=== PATIENT | female | born 1950 | race Two or more races ===

== ENCOUNTER 2023-05-05 00:04 | Emergency (ER) | payer OTHER ==
[~2023-05-05] VITALS: Ht 154.9 cm; Wt 59.0 kg
[2023-05-05] MEDS ORDERED: COZAAR25 MG (00:39)
[2023-05-05] MEDS ORDERED: TOPROL XL25 M1 (00:39)
[2023-05-05] MEDS ORDERED: AMLODIPINE-OLM1 EAC2 (00:43)
[2023-05-05] MEDS ORDERED: FLOVENT HFA12 GM IH (08:28)
[2023-05-05] MEDS ORDERED: PROVENTIL HFA6.7 GM IH (08:28)
[2023-05-05] MEDS ORDERED: ALBUTEROL2.5 MG/3 M IH (08:28)
[2023-05-05] MEDS ORDERED: ZYNCOF 20-400120 ML PO (08:29)
== END 2023-05-05 08:46 ==
LOC: ER 00:04
PROVIDERS: General Practice
DX: R06.02 Shortness of breath (principal); I10 Essential (primary) hypertension; Z87.891 Personal history of nicotine dependence; Z20.822 Contact with and (suspected) exposure to COVID-19
CPT/HCPCS: 36415; 71045; 82803; 93005; 93041; 94640; 96365; 99284; J2930

== ENCOUNTER 2024-08-01 13:00 | Inpatient (IN) | payer OTHER ==
[~2024-08-01] VITALS: Ht 154.9 cm; Wt 44.5 kg
[~2024-08-01 13:00] MED LIST: ALBUTEROL2.5 MG/3 M IH; AMLODIPINE-OLM1 EAC2; COZAAR25 MG; FLOVENT HFA12 GM IH; PROVENTIL HFA6.7 GM IH; TOPROL XL25 M1; ZYNCOF 20-400120 ML PO
[2024-08-01] MEDS ORDERED: TOPROL XL50 M1 PO (13:44)
[2024-08-01] MEDS ORDERED: AMILORIDE HCL5 MG PO (13:45)
[2024-08-01] MEDS ORDERED: COZAAR100 MG PO (13:45)
--- NOTE | 2024-08-01 13:46 | NUR ---
PTE LLEGA EN ANBULANCIA POR HYPOTENCION Y SUPUESTO ANAL BLEDING TIPO MELENA, SE SE LE BRENNA S/V Y SE UBICA EN GIANLUCA.3
[2024-08-01] MEDS ORDERED: 0.9 % SODIUM CHLORIDE 1,000 ML IV STA (14:05)
[2024-08-01] MEDS ORDERED: FAMOtidine 10 MG/ML (4ML VIAL) IV STA (14:05)
[2024-08-01] MEDS ORDERED: ONDANSETRON HCL 2 MG/ML VIAL IV ONE (14:15)
[2024-08-01 14:45] LABS: HEMATOCRIT 45.4 % (36.0-45.00); HEMOGLOBIN 15.6 g/dL (12.0-15.00); MEAN CELL VOLUME 95.3 fL (80.00-100.00); MEAN CORPUSCULAR HEMOGLOBIN 32.7 pg (27.00-32.0); MEAN CORPUSCULAR HGB CONC 34.3 g/dl (32.0-36.0); PLATELET COUNT 296 K/uL (150-450); RED BLOOD COUNT 4.76 M/uL (4.00-6.00); RED CELL DISTRIBUTION WIDTH 13.7 % (11.5-14.5)
[2024-08-01 15:12] LABS: ALBUMIN 3.3 gm/dL (3.4-5.0); BILIRUBIN TOTAL 0.61 mg/dL (0.3-1.2); BILIRUBIN,CONJUGATED 0.22 mg/dL (0.0-0.2); BILIRUBIN,UNCONJUGATED 0.39 mg/dL (0.0-0.6); CALCIUM 8.3 mg/dL (8.5-10.1); CREATININE SERUM 0.8 mg/dL (0.55-1.02); GFR 70.51; TOTAL PROTEIN 6.6 gm/dL (6.4-8.2)
[2024-08-01 15:15] LABS: POTASSIUM 2.93 mEq/L (3.5-5.1)
[2024-08-01] MEDS ORDERED: POTASSIUM BICARBONATE/CIT AC 25 MEQ TABLET.EFF PO ONE (19:30)
[2024-08-01] MEDS ORDERED: ASPIRIN 81 MG TAB.CHEW PO SCH (21:41)
[2024-08-01] MEDS ORDERED: PANTOPRAZOLE SODIUM 40 MG/VIAL VIAL IV SCH (21:41)
[2024-08-01] MEDS ORDERED: ATORVASTATIN CALCIUM 40 MG TABLET PO SCH (21:41)
[2024-08-01] MEDS ORDERED: POTASSIUM CHLORIDE IN WATER 100 ML IV SCH (21:43)
[2024-08-01] MEDS ORDERED: 0.9 % SODIUM CHLORIDE 1,000 ML IV SCH (21:45)
[2024-08-01] MEDS ORDERED: ACETAMINOPHEN 500 MG GEL..CAP PO PRN (21:45)
[2024-08-01] MEDS ORDERED: CEFTRIAXONE SODIUM 2,000 MG in 0.9 % SODIUM CHLORIDE 100 ML IV SCH (21:45)
[2024-08-01 23:47] LABS: URINE APPEARANCE Clear; URINE BILIRRUBIN Negative (NEGATIVE); URINE BLOOD Moderate; URINE COLOR Yellow; URINE GLUCOSE Negative (NEGATIVE); URINE KETONE Trace (NEGATIVE); URINE LEUKOCYTE Negative; URINE NITRATE Negative; URINE PROTEIN 30 (NEGATIVE); URINE UROBILINOGEN 0.2 E.U./dl
[2024-08-01 23:50] LABS: URINE BACTERIA 604.5 uL (0.0-1933); URINE EPITHELIAL CELLS 41.1 uL (0.0-38.8); URINE RBC 14.5 uL (0.0-20.8); URINE WBC 32.7 uL (0.0-23.2)
[2024-08-02 00:50] LABS: INR 0.97; PROTHROMBIN TIME 10.6 SECONDS (9.0-11.5)
[2024-08-02 01:00] LABS: D DIMER 3.78 MG/L; PARTIAL THROMBOPLASTIN TIME 25.1 SECONDS (22.0-34.0)
[2024-08-02 05:00] VITALS: BP 90/52; O2SAT 94
[2024-08-02 07:45] LABS: CHOL HDL RATIO 1.5 (0-5.0); TSH 0.502 uIU/mL (0.358-3.74)
[2024-08-02] MEDS ORDERED: LOSARTAN POTASSIUM 25 MG TABLET PO SCH (09:00)
[2024-08-02] MEDS ORDERED: METOPROLOL SUCCINATE 25 MG TAB.SR.24H PO SCH (09:00)
[2024-08-02 09:39] VITALS: BP 75/43; O2SAT 94
[2024-08-02] MEDS ORDERED: CLINDAMYCIN PHOSPHATE 600 MG in DEXTROSE 5 % IN WATER 50 ML IV SCH (17:00)
[2024-08-02] MEDS ORDERED: LACTOBACILLUS ACIDOPHILUS 1 CAP CAP PO SCH (17:00)
[2024-08-02 17:44] VITALS: BP 126/63
[2024-08-03 02:52] VITALS: BP 107/70; O2SAT 97
[2024-08-03 10:54] LABS: ob NEGATIVE (NEGATIVE)
[2024-08-03 19:41] VITALS: BP 114/52; O2SAT 95
[2024-08-04] VITALS: BP 132/59; O2SAT 100
[2024-08-04 06:45] LABS: HEMATOCRIT 38.8 % (36.0-45.00); HEMOGLOBIN 13.6 g/dL (12.0-15.00); MEAN CELL VOLUME 97.1 fL (80.00-100.00); MEAN CORPUSCULAR HEMOGLOBIN 33.9 pg (27.00-32.0); MEAN CORPUSCULAR HGB CONC 34.9 g/dl (32.0-36.0); PLATELET COUNT 314 K/uL (150-450); RED CELL DISTRIBUTION WIDTH 13.5 % (11.5-14.5)
[2024-08-04 07:25] LABS: ALBUMIN 3.4 gm/dL (3.4-5.0); BILIRUBIN TOTAL 0.66 mg/dL (0.3-1.2); CALCIUM 8.6 mg/dL (8.5-10.1); CREATININE SERUM 0.42 mg/dL (0.55-1.02); GFR 148.31; GLOBULINA 2.6 G/DL (2.4-3.5); POTASSIUM 3.08 mEq/L (3.5-5.1)
[2024-08-04 07:30] LABS: C-REACTIVE PROTEIN 2.92 MG/DL (0.00-0.29)
[2024-08-04 07:40] LABS: ERYTHROCYTE SEDIMENTATION RATE 12 mm/hr
[2024-08-04 08:30] VITALS: BP 138/65; O2SAT 98
[2024-08-04 17:13] LABS: PH,URINE 6.5 (5.0-8.0); URINE APPEARANCE Clear; URINE BILIRRUBIN Negative (NEGATIVE); URINE BLOOD Negative; URINE COLOR Yellow; URINE KETONE Negative (NEGATIVE); URINE LEUKOCYTE Negative; URINE NITRATE Negative; URINE PROTEIN Negative (NEGATIVE); URINE UROBILINOGEN 0.2 E.U./dl
[2024-08-04 17:17] LABS: URINE BACTERIA 8.8 uL (0.0-1933); URINE EPITHELIAL CELLS 47.9 uL (0.0-38.8); URINE RBC 106.5 uL (0.0-20.8); URINE WBC 7.1 uL (0.0-23.2)
[2024-08-04] MEDS ORDERED: POTASSIUM CHLORIDE IN WATER 100 ML IV ONE (17:30)
[2024-08-04 18:29] VITALS: BP 148/67; O2SAT 97
[2024-08-04 18:53] LABS: URINE GLUCOSE 100 MG/DL (NEGATIVE); URINE MUCUS SCANT
[2024-08-04] MEDS ORDERED: FAMOtidine 10 MG/ML (4ML VIAL) IV SCH (21:00)
[2024-08-05 02:12] VITALS: BP 149/79
[2024-08-05 07:53] LABS: CALCIUM 8.4 mg/dL (8.5-10.1); CREATININE SERUM 0.35 mg/dL (0.55-1.02); GFR 183.04
[2024-08-05] MEDS ORDERED: PANTOPRAZOLE SODIUM 40 MG TABLET.DR PO SCH (09:00)
[2024-08-05 09:06] LABS: POTASSIUM 2.83 mEq/L (3.5-5.1)
[2024-08-05 14:13] LABS: FECAL LEUKOCYTES NEGATIVE (NEGATIVE)
[2024-08-05] MEDS ORDERED: VANCOMYCIN HCL 125 MG/7.5 ML BLIST.PACK PO SCH (17:00)
[2024-08-05 17:25] VITALS: BP 144/68; O2SAT 95
[2024-08-05] MEDS ORDERED: POTASSIUM CHLORIDE IN WATER 100 ML IV ONE (18:15)
[2024-08-05] MEDS ORDERED: FAMOTIDINE/PF 20 MG/2 ML VIAL IV PUSH SCH (21:00)
[2024-08-06 00:56] VITALS: BP 133/73; O2SAT 95
[2024-08-06 10:33] VITALS: BP 138/54; O2SAT 98
[2024-08-06 17:54] VITALS: BP 133/73; O2SAT 100
[2024-08-07 01:15] VITALS: BP 165/86; O2SAT 98
[2024-08-07 06:52] LABS: HEMATOCRIT 34.3 % (36.0-45.00); HEMOGLOBIN 12.2 g/dL (12.0-15.00); MEAN CELL VOLUME 95.5 fL (80.00-100.00); MEAN CORPUSCULAR HEMOGLOBIN 34.1 pg (27.00-32.0); MEAN CORPUSCULAR HGB CONC 35.7 g/dl (32.0-36.0); PLATELET COUNT 403 K/uL (150-450); RED BLOOD COUNT 3.59 M/uL (4.00-6.00); RED CELL DISTRIBUTION WIDTH 13.4 % (11.5-14.5)
[2024-08-07 07:28] LABS: ALBUMIN 3.2 gm/dL (3.4-5.0); BILIRUBIN TOTAL 0.49 mg/dL (0.3-1.2); CALCIUM 8.3 mg/dL (8.5-10.1); CREATININE SERUM 0.44 mg/dL (0.55-1.02); GFR 140.56; GLOBULINA 2.3 G/DL (2.4-3.5); TOTAL PROTEIN 5.5 gm/dL (6.4-8.2)
[2024-08-07 09:09] VITALS: BP 158/79; O2SAT 99
[2024-08-07 09:12] LABS: C-REACTIVE PROTEIN 0.74 MG/DL (0.00-0.29)
[2024-08-07 09:14] LABS: POTASSIUM 2.82 mEq/L (3.5-5.1)
[2024-08-07] MEDS ORDERED: POTASSIUM CHLORIDE IN WATER 100 ML IV NR (16:00)
[2024-08-07] MEDS ORDERED: POTASSIUM CHLORIDE/D5-0.45NACL 1,000 ML IV ONE (16:00)
[2024-08-07 19:01] VITALS: BP 121/62
[2024-08-08 01:49] VITALS: BP 157/76; O2SAT 96
[2024-08-08 06:43] LABS: BILIRUBIN TOTAL 0.42 mg/dL (0.3-1.2); CALCIUM 8.5 mg/dL (8.5-10.1); CREATININE SERUM 0.38 mg/dL (0.55-1.02); GFR 166.47
[2024-08-08 07:41] LABS: POTASSIUM 2.99 mEq/L (3.5-5.1)
[2024-08-08] MEDS ORDERED: POTASSIUM CHLORIDE IN WATER 40 MEQ/100 ML PIGGYBAG IV ONE (08:00)
[2024-08-08] MEDS ORDERED: POTASSIUM CHLORIDE IN WATER 40 MEQ/100 ML PIGGYBAG IV NR (09:00)
[2024-08-08 09:12] VITALS: BP 143/77; O2SAT 98
[2024-08-08] MEDS ORDERED: POTASSIUM CHLORIDE IN 0.9%NACL 1,000 ML IV SCH (16:57)
[2024-08-08 18:24] VITALS: BP 186/95
[2024-08-09 03:04] VITALS: BP 137/84; O2SAT 93
[2024-08-09 09:02] VITALS: BP 140/80; O2SAT 96
[2024-08-09 18:25] VITALS: BP 160/85; O2SAT 97
[2024-08-09] MEDS ORDERED: POTASSIUM CHLORIDE IN 0.9%NACL 1,000 ML IV ONE (18:30)
[2024-08-09 21:57] LABS: ALBUMIN 3.1 gm/dL (3.4-5.0); BILIRUBIN TOTAL 0.33 mg/dL (0.3-1.2); CALCIUM 8.6 mg/dL (8.5-10.1); CREATININE SERUM 0.61 mg/dL (0.55-1.02); GFR 96.41; GLOBULINA 2.4 G/DL (2.4-3.5); POTASSIUM 3.39 mEq/L (3.5-5.1); TOTAL PROTEIN 5.5 gm/dL (6.4-8.2)
[2024-08-10 03:07] VITALS: BP 140/85; O2SAT 94
[2024-08-10 07:15] LABS: BILIRUBIN TOTAL 0.43 mg/dL (0.3-1.2); CALCIUM 8.2 mg/dL (8.5-10.1); CREATININE SERUM 0.39 mg/dL (0.55-1.02); GFR 161.55; GLOBULINA 2.2 G/DL (2.4-3.5); POTASSIUM 3.83 mEq/L (3.5-5.1); TOTAL PROTEIN 5.2 gm/dL (6.4-8.2)
[2024-08-10 08:44] VITALS: BP 150/86; O2SAT 98
[2024-08-10] MEDS ORDERED: PANTOPRAZOLE SO40 MG PO (17:38)
[2024-08-10] MEDS ORDERED: VANCOMYCIN HCL1 GM PO (17:38)
[2024-08-10] MEDS ORDERED: INTESTINEX680 M1 PO (17:38)
[2024-08-10] MEDS ORDERED: TOPROL XL25 M1 PO (17:38)
[2024-08-10] MEDS ORDERED: LOSARTAN POTASS25 MG PO (17:38)
[2024-08-10] MEDS ORDERED: ADULT ASPIRIN81 MG PO (17:38)
[2024-08-10] MEDS ORDERED: LIPITOR40 M1 PO (17:38)
== END 2024-08-10 18:11 | disposition home or self-care (01) | DRG 641 ==
LOC: MEDJ → ER 13:00 → MEDJ 22:33
PROVIDERS: General Practice; Internal Medicine Infectious Disease; ADMIT Internal Medicine; ATTEND Internal Medicine
PROC: BW21ZZZ Computerized Tomography (CT Scan) of Abdomen and Pelvis (ICD-10-PCS; principal; 2024-08-01)
PROC: BW28ZZZ Computerized Tomography (CT Scan) of Head (ICD-10-PCS; 2024-08-01)
PROC: B345ZZZ Ultrasonography of Bilateral Common Carotid Arteries (ICD-10-PCS; 2024-08-01)
PROC: B24BZZZ Ultrasonography of Heart with Aorta (ICD-10-PCS; 2024-08-01)
DX: E86.0 Dehydration (principal); N39.0 Urinary tract infection, site not specified; N17.9 Acute kidney failure, unspecified; A04.72 Enterocolitis due to Clostridium difficile, not specified as recurrent; R55 Syncope and collapse; E87.1 Hypo-osmolality and hyponatremia; E87.6 Hypokalemia; I65.23 Occlusion and stenosis of bilateral carotid arteries; I10 Essential (primary) hypertension; E78.5 Hyperlipidemia, unspecified